=== PATIENT | male | born 1980 | race Caucasian/White ===

== ENCOUNTER 2019-08-06 15:18 | Inpatient (IN) ==
[2019-08-06] MEDS ORDERED: 0.9 % Sodium Chloride 1,000 ML IVC ONE ×2 (15:35→15:38)
[2019-08-06] MEDS ORDERED: Ondansetron 4 MG/2 ML VIAL IVP ONE (15:35)
[2019-08-06] MEDS ORDERED: *HR* FentaNYL (PF) 100 MCG/2 ML VIAL IVP ONE (15:35)
[2019-08-06] MEDS ORDERED: Isovue-370 500 ML BOTTLE IVP ONE (15:36)
[2019-08-06 16:21] LABS: Eosinophils # 0.3 K/mcL (0.0-0.6); Hematocrit 33.7 % (37.5-50.1); Hemoglobin 11.9 g/dL (12.9-16.9); Mean Corpuscular HGB Conc 35.3 g/dL (31.6-35.5); Mean Corpuscular Hemoglobin 39.8 pg (28.0-33.3); Mean Corpuscular Volume 112.7 fL (83.0-100.0); Mean Platelet Volume 10.7 fL (9.4-12.4); Platelet Count 226 K/mcL (140-400); Red Blood Count 2.99 M/mcL (4.19-5.50); Red Cell Distribution Width 14.8 % (11.5-14.5); White Blood Count 12.3 K/mcL (4.3-11.1)
[2019-08-06 16:42] LABS: Lymphocytes # 2.5 K/mcL (0.6-4.6); Monocytes # 0.5 K/mcL (0.0-1.3); Neutrophils # 9.1 K/mcL (1.6-8.9)
[2019-08-06 16:44] LABS: Hypochromasia Present (Not Present); Large Platelets Present (Not Present); Macrocytosis Present (Not Present); Platelet Estimate Normal (Normal)
[2019-08-06] MEDS ORDERED: *HR* HYDROmorphone (PF) 1 MG/ML SYRINGE IVP ONE (17:18)
[2019-08-06 17:34] LABS: BUN/Creatinine Ratio 13 (6-26); Blood Urea Nitrogen 15 mg/dL (6-20); Calcium 8.8 mg/dL (8.6-10.3); Carbon Dioxide 23 mEq/L (23-29); Chloride 100 mEq/L (98-107); Glucose 114 mg/dL (70-105); Osmolality,Calculated 282 (280-300); Potassium 3.5 mEq/L (3.5-5.1); Sodium 135 mEq/L (136-145); eGFR For African Americans > 60 (> 60); eGFR For Non-African Americans > 60 (> 60)
[2019-08-06 17:34] LABS: Bilirubin,Urine Small (Negative); Blood,Urine Moderate (Negative); Clarity,Urine Cloudy (Clear); Color,Urine Dark Yellow (Yellow); Glucose,Urine (UA) Normal (Normal); Ketones,Urine Trace mg/dL (Negative); Leukocyte Esterase,Urine Small (Negative); Nitrite,Urine Negative (Negative); PH,Urine 6.5 pH Units (5.0-8.0); Protein,Urine 30 mg/dL (Neg-Trace); Specific Gravity,Urine 1.019 (1.010-1.025); Urobilinogen,Urine >=8.0 mg/dL (Normal)
[2019-08-06 17:36] LABS: Hyaline Casts,Urine None Seen per lpf (None-Few); Squamous Epithelial Cell,Urine Many per lpf (None-Few); WBC,Urine 15-30 per hpf (0-3)
[2019-08-06 17:51] LABS: Bacteria,Urine Few per hpf (None-Few); Calcium Oxalate Crystals,Urine Present; Yeast,Urine Moderate per hpf (None Seen)
[2019-08-06 18:11] LABS: Alanine Aminotransferase 44 Units/L (7-52); Albumin 3.1 g/dL (3.5-5.7); Albumin/Globulin Ratio 0.7 (1.1-2.2); Alkaline Phosphatase 168 Units/L (34-104); Aspartate Amino Transferase 126 Units/L (13-39); Bilirubin,Direct 1.2 mg/dL (0.0-0.2); Bilirubin,Indirect 0.7 mg/dL (0.0-1.0); Bilirubin,Total 1.9 mg/dL (0.3-1.0); Globulin 4.5 g/dL (2.4-3.5); Lipase 14 Units/L (11-82); Total Protein 7.6 g/dL (6.4-8.9)
[2019-08-06] MEDS ORDERED: Ampicillin/Sulbactam 3,000 MG in 0.9 % Sodium Chloride 100 ML IVPB ONE (18:44)
[2019-08-06] MEDS ORDERED: clonazePAM 1 MG TABLET PO STA (18:49)
[2019-08-06] MEDS ORDERED: Ondansetron 4 MG/2 ML VIAL IVP PRN (20:10)
[2019-08-06] MEDS ORDERED: Naloxone 0.4 MG/ML INJ IVP PRN (20:10)
[2019-08-06] MEDS ORDERED: 0.9 % Sodium Chloride 1,000 ML IVC SCH (20:15)
[2019-08-06 21:12] LABS: INR 1.2; Prothrombin Time 13.2 Seconds (9.4-12.1)
[2019-08-06 21:14] LABS: Activated Partial Thrombo Time 29.4 Seconds (26.0-36.0)
[2019-08-06] MEDS ORDERED: *HR* FentaNYL (PF) 100 MCG/2 ML VIAL ONE (23:28)
[2019-08-06] MEDS ORDERED: *HR* Midazolam HCl 2 MG/2 ML VIAL ONE (23:29)
[2019-08-06] MEDS ORDERED: Lidocaine -MPF 2% 2 ML VIAL ONE (23:29)
[2019-08-06] MEDS ORDERED: *HR* Propofol 200 MG/20 ML VIAL IVP ONE (23:29)
[2019-08-06] MEDS ORDERED: Bupivacaine/EPI 1:200k 0.25%PF 30 ML VIAL ONE (23:33)
[2019-08-06] MEDS ORDERED: Lidocaine 1% 20 ML MDV ONE (23:34)
[2019-08-06] MEDS ORDERED: *HR* OxyCODONE Immed Rel 5 MG TABLET PO PRN (23:55)
[2019-08-06] MEDS ORDERED: *HR* Rocuronium Bromide 50 MG/5 ML VIAL ONE (23:57)
[2019-08-06] MEDS ORDERED: *HR* Succinylcholine 200 MG/10 ML VIAL IVP ONE (23:57)
[2019-08-06] MEDS ORDERED: Acetaminophen IV 1,000 MG/100 ML INFUS..BTL ONE (23:57)
[2019-08-07] MEDS ORDERED: Ondansetron 4 MG/2 ML VIAL ONE (00:19)
[2019-08-07] MEDS ORDERED: Dexamethasone 4 MG/ML VIAL ONE (00:19)
[2019-08-07] MEDS ORDERED: Lidocaine HCL 4 ML Topical Solution (Laryng-O-Jet Kit Sterile Pak) TP ONE (00:19)
[2019-08-07] MEDS: *HR* HYDROmorphone (PF) 1 MG/ML SYRINGE IVP PRN ×2 (01:45→01:54)
[2019-08-07] MEDS ORDERED: *HR* Promethazine 25 MG/ML VIAL IVP ONE (02:13)
[2019-08-07] MEDS ORDERED: *HR* Promethazine 25 MG/ML VIAL ONE (02:16)
[2019-08-07] MEDS ORDERED: 0.9 % Sodium Chloride 1,000 ML IVC SCH (02:38)
[2019-08-07] MEDS ORDERED: Naloxone 0.4 MG/ML INJ IVP PRN (02:38)
[2019-08-07 05:06] LABS: Basophils # 0.1 K/mcL (0.0-0.2); Basophils % 0.9 %; Eosinophils # 0.1 K/mcL (0.0-0.6); Eosinophils % 0.6 %; Hematocrit 29.5 % (37.5-50.1); Immature Granulocytes % 4.8 % (0-4); Lymphocytes # 1.3 K/mcL (0.6-4.6); Lymphocytes % 10.9 %; Mean Corpuscular HGB Conc 33.9 g/dL (31.6-35.5); Mean Corpuscular Hemoglobin 39.8 pg (28.0-33.3); Mean Corpuscular Volume 117.5 fL (83.0-100.0); Mean Platelet Volume 10.7 fL (9.4-12.4); Monocytes # 0.3 K/mcL (0.0-1.3); Monocytes % 2.7 %; Neutrophils # 9.3 K/mcL (1.6-8.9); Platelet Count 183 K/mcL (140-400); Red Blood Count 2.51 M/mcL (4.19-5.50); Red Cell Distribution Width 14.7 % (11.5-14.5); Segmented Neutrophils % 80.1 %; White Blood Count 11.6 K/mcL (4.3-11.1)
[2019-08-07 05:34] LABS: Alanine Aminotransferase 34 Units/L (7-52); Albumin 2.8 g/dL (3.5-5.7); Albumin/Globulin Ratio 0.7 (1.1-2.2); Alkaline Phosphatase 144 Units/L (34-104); Aspartate Amino Transferase 87 Units/L (13-39); BUN/Creatinine Ratio 14 (6-26); Bilirubin,Total 1.3 mg/dL (0.3-1.0); Blood Urea Nitrogen 13 mg/dL (6-20); Calcium 7.9 mg/dL (8.6-10.3); Carbon Dioxide 18 mEq/L (23-29); Chloride 105 mEq/L (98-107); Globulin 3.9 g/dL (2.4-3.5); Glucose 179 mg/dL (70-105); Osmolality,Calculated 289 (280-300); Potassium 4.2 mEq/L (3.5-5.1); Sodium 137 mEq/L (136-145); Total Protein 6.7 g/dL (6.4-8.9); eGFR For African Americans > 60 (> 60); eGFR For Non-African Americans > 60 (> 60)
[2019-08-07 05:35] LABS: Platelet Estimate Normal (Normal)
[2019-08-07 05:36] LABS: Macrocytosis Present (Not Present)
[2019-08-07 06:32] LABS: Chlamydia Trachomatis DNA Ur NOT DETECTED (Not Detect)
[2019-08-07 07:42] LABS: % Iron Saturation 55 % (20-55); Iron 75 mcg/dL (65-175); Transferrin 98 mg/dL (203-362)
[2019-08-07 08:33] LABS: Alanine Aminotransferase 35 Units/L (7-52); Albumin 2.8 g/dL (3.5-5.7); Albumin/Globulin Ratio 0.7 (1.1-2.2); Alkaline Phosphatase 140 Units/L (34-104); Aspartate Amino Transferase 96 Units/L (13-39); Bilirubin,Direct 0.8 mg/dL (0.0-0.2); Bilirubin,Indirect 0.5 mg/dL (0.0-1.0); Bilirubin,Total 1.3 mg/dL (0.3-1.0); Ferritin > 1500 ng/mL (20-250); Globulin 3.8 g/dL (2.4-3.5); Thyroid Stimulating Hormone 0.399 mcIU/mL (0.340-5.600); Total Protein 6.6 g/dL (6.4-8.9)
[2019-08-07] MEDS: Nicotine 14 MG PATCH.TD24 TD SCH (09:03)
[2019-08-07] MEDS: cefTRIAXone 2,000 MG in Water for inj. (sterile) 20 ML IVP SCH (12:17)
[2019-08-07] MEDS: Ringers Solution, Lactated 1,000 ML IVC SCH ×2 (12:18→23:40)
[2019-08-07] MEDS: Ondansetron 4 MG/2 ML VIAL IVP PRN ×2 (12:31→21:06)
[2019-08-07 12:33] LABS: Hematocrit 27.5 % (37.5-50.1); Hemoglobin 9.6 g/dL (12.9-16.9)
[2019-08-07 12:49] LABS: Albumin 2.7 g/dL (3.5-5.7); Albumin/Globulin Ratio 0.7 (1.1-2.2); Bilirubin,Direct 0.6 mg/dL (0.0-0.2); Bilirubin,Indirect 0.5 mg/dL (0.0-1.0); Bilirubin,Total 1.1 mg/dL (0.3-1.0); Globulin 3.7 g/dL (2.4-3.5); Total Protein 6.4 g/dL (6.4-8.9)
[2019-08-07] MEDS ORDERED: Gentamicin 120 MG in 0.9 % Sodium Chloride 100 ML IVPB SCH (13:00)
[2019-08-07 13:01] LABS: Hepatitis B Surface Antibody < 3.10 mIU/mL
[2019-08-07 13:11] LABS: Hepatitis B Surface Antigen Nonreactive (Nonreactive)
[2019-08-07 13:40] LABS: Hepatitis B Core IgM Nonreactive (Nonreactive)
[2019-08-07 13:41] LABS: HIV-1&2 Antibody & p24 Ag Nonreactive (Nonreactive); Hepatitis A Antibody IgM Nonreactive (Nonreactive); Hepatitis C Virus Antibody Nonreactive (Nonreactive)
[2019-08-07] MEDS: *HR* OxyCODONE Immed Rel 5 MG TABLET PO PRN ×2 (14:45→19:59)
[2019-08-07] MEDS: clonazePAM 1 MG TABLET PO PRN ×2 (14:45→19:59)
[2019-08-07] MEDS: Famotidine 20 MG TABLET PO SCH (14:45)
[2019-08-07] MEDS: Gabapentin 300 MG CAPSULE PO SCH ×3 (14:46→21:54)
[2019-08-07 15:59] LABS: Amphetamine Screen,Urine Negative ng/mL (Cutoff=1000); Barbiturate Screen,Urine Negative ng/mL (Cutoff=200); Benzodiazepines Screen,Urine Positive ng/mL (Cutoff=200); Cannabinoid Screen,Urine Negative ng/mL (Cutoff = 50); Cocaine Screen,Urine Negative ng/mL (Cutoff= 300); Opiate Screen,Urine Positive ng/mL (Cutoff=300); Phencyclidine Screen,Urine Negative ng/mL (Cutoff=25)
[2019-08-07] MEDS ORDERED: Pantoprazole 40 MG VIAL IVP SCH (18:00)
[2019-08-08] MEDS: *HR* OxyCODONE Immed Rel 5 MG TABLET PO PRN ×6 (01:41→22:52)
[2019-08-08] MEDS: clonazePAM 1 MG TABLET PO PRN ×3 (05:44→22:52)
[2019-08-08 06:20] LABS: Basophils # 0.1 K/mcL (0.0-0.2); Basophils % 0.9 %; Eosinophils # 0.2 K/mcL (0.0-0.6); Eosinophils % 2.4 %; Hematocrit 26.3 % (37.5-50.1); Hemoglobin 8.9 g/dL (12.9-16.9); Lymphocytes # 2.8 K/mcL (0.6-4.6); Lymphocytes % 30.2 %; Mean Corpuscular HGB Conc 33.8 g/dL (31.6-35.5); Mean Corpuscular Hemoglobin 39.9 pg (28.0-33.3); Mean Corpuscular Volume 117.9 fL (83.0-100.0); Mean Platelet Volume 10.6 fL (9.4-12.4); Monocytes # 0.6 K/mcL (0.0-1.3); Monocytes % 6.1 %; Platelet Count 191 K/mcL (140-400); Red Blood Count 2.23 M/mcL (4.19-5.50); Red Cell Distribution Width 14.8 % (11.5-14.5); Segmented Neutrophils % 53.4 %; White Blood Count 9.3 K/mcL (4.3-11.1)
[2019-08-08 06:42] LABS: Alanine Aminotransferase 33 Units/L (7-52); Albumin 2.4 g/dL (3.5-5.7); Albumin/Globulin Ratio 0.7 (1.1-2.2); Alkaline Phosphatase 123 Units/L (34-104); Aspartate Amino Transferase 78 Units/L (13-39); BUN/Creatinine Ratio 11 (6-26); Bilirubin,Direct 0.3 mg/dL (0.0-0.2); Bilirubin,Indirect 0.3 mg/dL (0.0-1.0); Bilirubin,Total 0.6 mg/dL (0.3-1.0); Blood Urea Nitrogen 10 mg/dL (6-20); Carbon Dioxide 23 mEq/L (23-29); Chloride 108 mEq/L (98-107); Globulin 3.5 g/dL (2.4-3.5); Glucose 95 mg/dL (70-105); Magnesium 1.5 mg/dL (1.6-2.6); Osmolality,Calculated 289 (280-300); Potassium 3.2 mEq/L (3.5-5.1); Sodium 140 mEq/L (136-145); Total Protein 5.9 g/dL (6.4-8.9); eGFR For African Americans > 60 (> 60); eGFR For Non-African Americans > 60 (> 60)
[2019-08-08 06:47] LABS: Platelet Estimate Normal (Normal)
[2019-08-08] MEDS ORDERED: Gentamicin 120 MG in 0.9 % Sodium Chloride 100 ML IVPB SCH (07:45)
[2019-08-08] MEDS: Famotidine 20 MG TABLET PO SCH ×2 (07:53→18:04)
[2019-08-08] MEDS: Gabapentin 300 MG CAPSULE PO SCH ×4 (07:53→20:26)
[2019-08-08] MEDS: Nicotine 14 MG PATCH.TD24 TD SCH (07:54)
[2019-08-08] MEDS: cefTRIAXone 2,000 MG in Water for inj. (sterile) 20 ML IVP SCH (07:55)
[2019-08-08] MEDS: Ringers Solution, Lactated 1,000 ML IVC SCH ×2 (09:47→23:48)
[2019-08-08] MEDS: Gentamicin 120 MG in 0.9 % Sodium Chloride 100 ML IVPB SCH (13:56)
[2019-08-09 03:19] LABS: Basophils # 0.1 K/mcL (0.0-0.2); Basophils % 1.2 %; Eosinophils # 0.3 K/mcL (0.0-0.6); Hematocrit 27.3 % (37.5-50.1); Hemoglobin 9.3 g/dL (12.9-16.9); Immature Granulocytes % 8.6 % (0-4); Lymphocytes # 2.8 K/mcL (0.6-4.6); Lymphocytes % 34.1 %; Mean Corpuscular HGB Conc 34.1 g/dL (31.6-35.5); Mean Corpuscular Hemoglobin 39.7 pg (28.0-33.3); Mean Corpuscular Volume 116.7 fL (83.0-100.0); Mean Platelet Volume 10.7 fL (9.4-12.4); Monocytes # 0.6 K/mcL (0.0-1.3); Monocytes % 7.1 %; Neutrophils # 3.8 K/mcL (1.6-8.9); Platelet Count 190 K/mcL (140-400); Red Blood Count 2.34 M/mcL (4.19-5.50); Red Cell Distribution Width 14.6 % (11.5-14.5); White Blood Count 8.3 K/mcL (4.3-11.1)
[2019-08-09 03:36] LABS: BUN/Creatinine Ratio 8 (6-26); Blood Urea Nitrogen 7 mg/dL (6-20); Calcium 8.1 mg/dL (8.6-10.3); Carbon Dioxide 22 mEq/L (23-29); Chloride 105 mEq/L (98-107); Glucose 113 mg/dL (70-105); Magnesium 1.5 mg/dL (1.6-2.6); Osmolality,Calculated 285 (280-300); Sodium 138 mEq/L (136-145); eGFR For African Americans > 60 (> 60); eGFR For Non-African Americans > 60 (> 60)
[2019-08-09 05:20] LABS: Anisocytosis 1+ (Not Present); Hypochromasia Present (Not Present)
[2019-08-09 05:21] LABS: Platelet Estimate Normal (Normal)
[2019-08-09 06:58] VITALS: BP 118/73
[2019-08-09] MEDS ORDERED: Potassium Chloride 20 MEQ, Lidocaine 1% 2 ML in 0.9 % Sodium Chloride 250 ML IVPB ONE (08:06)
[2019-08-09] MEDS: Gabapentin 300 MG CAPSULE PO SCH ×2 (08:12→13:01)
[2019-08-09] MEDS: Famotidine 20 MG TABLET PO SCH (08:12)
[2019-08-09] MEDS: cefTRIAXone 2,000 MG in Water for inj. (sterile) 20 ML IVP SCH (08:12)
[2019-08-09] MEDS: Nicotine 14 MG PATCH.TD24 TD SCH (08:13)
[2019-08-09] MEDS: *HR* OxyCODONE Immed Rel 5 MG TABLET PO PRN ×2 (09:58→14:18)
[2019-08-09] MEDS: Gentamicin 120 MG in 0.9 % Sodium Chloride 100 ML IVPB SCH (13:02)
== END 2019-08-09 14:39 | disposition home or self-care (01) | DRG 710 ==
LOC: EMEROOARM 15:18 → 3ANU 15:18 → SUATTDRO 20:35 → 3ANU 20:40
PROVIDERS: ADMIT Internal Medicine; ATTEND Pharmacist

== ENCOUNTER 2019-10-29 19:23 | Observation (INO) ==
[2019-10-29] MEDS ORDERED: 0.9 % Sodium Chloride 1,000 ML IVC ONE (20:12)
[2019-10-29 20:37] LABS: Hyaline Casts,Urine None Seen per lpf (None-Few); RBC,Urine 0-3 per hpf (0-3); Squamous Epithelial Cell,Urine Moderate per lpf (None-Few)
[2019-10-29 20:38] LABS: Basophils # 0.1 K/mcL (0.0-0.2); Basophils % 0.9 %; Eosinophils # 0.4 K/mcL (0.0-0.6); Eosinophils % 3.5 %; Hematocrit 42.3 % (37.5-50.1); Hemoglobin 14.5 g/dL (12.9-16.9); Immature Granulocytes % 0.5 % (0-4); Lymphocytes % 25.2 %; Mean Corpuscular HGB Conc 34.3 g/dL (31.6-35.5); Mean Corpuscular Hemoglobin 38.8 pg (28.0-33.3); Mean Corpuscular Volume 113.1 fL (83.0-100.0); Mean Platelet Volume 10.6 fL (9.4-12.4); Monocytes # 0.7 K/mcL (0.0-1.3); Monocytes % 5.8 %; Neutrophils # 7.6 K/mcL (1.6-8.9); Platelet Count 169 K/mcL (140-400); Red Blood Count 3.74 M/mcL (4.19-5.50); Red Cell Distribution Width 17.1 % (11.5-14.5); Segmented Neutrophils % 64.1 %; White Blood Count 11.9 K/mcL (4.3-11.1)
[2019-10-29 20:39] LABS: Macrocytosis Present (Not Present)
[2019-10-29 20:41] LABS: Bilirubin,Urine Large (Negative); Clarity,Urine Cloudy (Clear); Color,Urine Orange (Yellow); Glucose,Urine (UA) Normal (Normal); Ketones,Urine 40 mg/dL (Negative)
[2019-10-29 20:42] LABS: Blood,Urine Negative (Negative); Leukocyte Esterase,Urine Small (Negative); Nitrite,Urine Positive (Negative); PH,Urine 6.5 pH Units (5.0-8.0); Protein,Urine 30 mg/dL (Neg-Trace)
[2019-10-29 20:47] LABS: Bacteria,Urine Few per hpf (None-Few)
[2019-10-29 20:58] LABS: Alanine Aminotransferase 34 Units/L (7-52); Albumin 3.6 g/dL (3.5-5.7); Albumin/Globulin Ratio 0.9 (1.1-2.2); Alkaline Phosphatase 188 Units/L (34-104); Aspartate Amino Transferase 65 Units/L (13-39); BUN/Creatinine Ratio 14 (6-26); Bilirubin,Total 2.4 mg/dL (0.3-1.0); Blood Urea Nitrogen 12 mg/dL (6-20); Calcium 8.9 mg/dL (8.6-10.3); Carbon Dioxide 23 mEq/L (23-29); Chloride 99 mEq/L (98-107); Globulin 4.1 g/dL (2.4-3.5); Glucose 108 mg/dL (70-105); Lipase 78 Units/L (11-82); Osmolality,Calculated 274 (280-300); Potassium 3.5 mEq/L (3.5-5.1); Sodium 132 mEq/L (136-145); Total Protein 7.7 g/dL (6.4-8.9); eGFR For African Americans > 60 (> 60); eGFR For Non-African Americans > 60 (> 60)
[2019-10-29 21:28] LABS: Hepatitis B Surface Antigen Nonreactive (Nonreactive)
[2019-10-29] MEDS ORDERED: Isovue-370 500 ML BOTTLE IVP ONE (21:30)
[2019-10-29 21:57] LABS: Hepatitis C Virus Antibody Nonreactive (Nonreactive)
[2019-10-29 21:58] LABS: Hepatitis B Core IgM Nonreactive (Nonreactive)
[2019-10-29 21:59] LABS: Hepatitis A Antibody IgM Nonreactive (Nonreactive)
[2019-10-29] MEDS ORDERED: *HR* FentaNYL (PF) 100 MCG/2 ML VIAL IVP ONE (22:14)
[2019-10-29 22:36] LABS: Creatine Kinase 20 Units/L (30-223); Triglycerides 258 mg/dL (< 150)
[2019-10-29] MEDS ORDERED: cefTRIAXone 1,000 MG in Water for inj. (sterile) 10 ML IVP ONE (23:31)
[2019-10-29] MEDS ORDERED: Naloxone 0.4 MG/ML INJ IVP PRN (23:57)
[2019-10-30] MEDS: Ringers Solution, Lactated 1,000 ML IVC SCH ×2 (00:43→05:48)
[2019-10-30] MEDS: Nicotine 21 MG PATCH.TD24 TD SCH (01:07)
[2019-10-30] MEDS: Ketorolac 30 MG/ML VIAL IVP PRN ×2 (01:07→14:29)
[2019-10-30] MEDS ORDERED: *HR* LORazepam 2 MG/ML VIAL IVP ONE (01:54)
[2019-10-30 02:42] LABS: Bilirubin,Direct 1.3 mg/dL (0.0-0.2)
[2019-10-30] MEDS: Gabapentin 300 MG CAPSULE PO SCH ×4 (03:55→21:31)
[2019-10-30] MEDS: Famotidine 20 MG TABLET PO SCH (08:05)
[2019-10-30] MEDS: cefTRIAXone 1,000 MG in Water for inj. (sterile) 10 ML IVPB SCH (08:06)
[2019-10-30] MEDS: clonazePAM 1 MG TABLET PO PRN ×2 (10:31→18:39)
[2019-10-30 10:46] LABS: Basophils # 0.1 K/mcL (0.0-0.2); Basophils % 1.1 %; Eosinophils # 0.4 K/mcL (0.0-0.6); Eosinophils % 5.1 %; Hematocrit 36.6 % (37.5-50.1); Immature Granulocytes % 0.5 % (0-4); Lymphocytes # 2.4 K/mcL (0.6-4.6); Lymphocytes % 28.5 %; Mean Corpuscular HGB Conc 33.3 g/dL (31.6-35.5); Mean Corpuscular Hemoglobin 39.2 pg (28.0-33.3); Mean Corpuscular Volume 117.7 fL (83.0-100.0); Mean Platelet Volume 10.6 fL (9.4-12.4); Monocytes # 0.5 K/mcL (0.0-1.3); Monocytes % 6.4 %; Neutrophils # 4.9 K/mcL (1.6-8.9); Platelet Count 119 K/mcL (140-400); Red Blood Count 3.11 M/mcL (4.19-5.50); Segmented Neutrophils % 58.4 %; White Blood Count 8.4 K/mcL (4.3-11.1)
[2019-10-30 10:47] LABS: Hemoglobin 12.2 g/dL (12.9-16.9)
[2019-10-30 11:07] LABS: Alanine Aminotransferase 27 Units/L (7-52); Albumin 2.8 g/dL (3.5-5.7); Albumin/Globulin Ratio 0.9 (1.1-2.2); Alkaline Phosphatase 134 Units/L (34-104); Aspartate Amino Transferase 53 Units/L (13-39); BUN/Creatinine Ratio 14 (6-26); Bilirubin,Total 1.3 mg/dL (0.3-1.0); Blood Urea Nitrogen 10 mg/dL (6-20); Calcium 8.1 mg/dL (8.6-10.3); Carbon Dioxide 25 mEq/L (23-29); Chloride 102 mEq/L (98-107); Globulin 3.2 g/dL (2.4-3.5); Glucose 86 mg/dL (70-105); Osmolality,Calculated 272 (280-300); Potassium 3.4 mEq/L (3.5-5.1); Sodium 132 mEq/L (136-145); eGFR For African Americans > 60 (> 60); eGFR For Non-African Americans > 60 (> 60)
[2019-10-30 11:13] LABS: Macrocytosis Present (Not Present); Platelet Estimate Normal (Normal); Toxic Granulation Present (Not Present)
[2019-10-30 11:40] LABS: Amphetamine Screen,Urine Negative ng/mL (Cutoff=1000); Barbiturate Screen,Urine Negative ng/mL (Cutoff=200); Benzodiazepines Screen,Urine Positive ng/mL (Cutoff=200); Cannabinoid Screen,Urine Negative ng/mL (Cutoff = 50); Cocaine Screen,Urine Negative ng/mL (Cutoff= 300); Opiate Screen,Urine Negative ng/mL (Cutoff=300); Phencyclidine Screen,Urine Negative ng/mL (Cutoff=25)
[2019-10-30] MEDS ORDERED: miSOPROStoL 100 MCG TABLET PO PRN (15:49)
[2019-10-30 15:58] LABS: Folate 2.3 ng/mL (3.0-16.0)
[2019-10-30] MEDS: QUEtiapine Fumarate 25 MG TABLET PO SCH ×2 (21:30→21:36)
[2019-10-30] MEDS ORDERED: *HR* LORazepam 2 MG/ML VIAL IVP PRN ×3 (22:21)
[2019-10-31] MEDS: Nicotine 21 MG PATCH.TD24 TD SCH (01:06)
[2019-10-31 01:08] LABS: Hematocrit 37.3 % (37.5-50.1); Hemoglobin 12.4 g/dL (12.9-16.9); Mean Corpuscular HGB Conc 33.2 g/dL (31.6-35.5); Mean Corpuscular Hemoglobin 38.2 pg (28.0-33.3); Mean Corpuscular Volume 114.8 fL (83.0-100.0); Mean Platelet Volume 11.5 fL (9.4-12.4); Platelet Count 138 K/mcL (140-400); Red Blood Count 3.25 M/mcL (4.19-5.50); Red Cell Distribution Width 16.5 % (11.5-14.5); White Blood Count 7.9 K/mcL (4.3-11.1)
[2019-10-31] MEDS ORDERED: Lactulose Oral Soln 20 GM/30 ML UDC PO ONE ×2 (01:08→09:00)
[2019-10-31 01:18] LABS: BUN/Creatinine Ratio 12 (6-26); Blood Urea Nitrogen 9 mg/dL (6-20); Calcium 8.8 mg/dL (8.6-10.3); Carbon Dioxide 27 mEq/L (23-29); Chloride 102 mEq/L (98-107); Glucose 103 mg/dL (70-105); Osmolality,Calculated 277 (280-300); Potassium 3.3 mEq/L (3.5-5.1); Sodium 134 mEq/L (136-145); eGFR For African Americans > 60 (> 60); eGFR For Non-African Americans > 60 (> 60)
[2019-10-31] MEDS: clonazePAM 1 MG TABLET PO PRN (02:36)
[2019-10-31 08:05] LABS: Amylase 30 Units/L (29-103); Lipase 58 Units/L (11-82)
[2019-10-31] MEDS: cefTRIAXone 1,000 MG in Water for inj. (sterile) 10 ML IVPB SCH (08:44)
[2019-10-31] MEDS: Gabapentin 300 MG CAPSULE PO SCH (08:45)
[2019-10-31] MEDS: Famotidine 20 MG TABLET PO SCH (08:45)
[2019-10-31] MEDS ORDERED: Folic Acid 1 MG TABLET PO SCH (09:00)
[2019-10-31] MEDS ORDERED: Vitamin B Complex/Vit C/Vit E 1 EACH TABLET PO SCH (09:00)
[2019-10-31] MEDS ORDERED: Thiamine (B-1) 100 MG TABLET PO SCH (09:00)
[2019-10-31 10:51] VITALS: BP 123/83
[2019-10-31] MEDS ORDERED: Cefdinir 300 MG CAPSULE PO SCH (21:00)
== END 2019-10-31 11:54 | disposition home or self-care (01) ==
LOC: EMEROOARM 19:23 → 3ANU 19:23 → SUATTDRO 23:47 → 3ANU 10-30 00:10
PROVIDERS: ADMIT Student in an Organized Health Care Education/Training Program; ATTEND Family Medicine